=== PATIENT | female | born 1975 | race Caucasian/White ===

== ENCOUNTER 2017-11-18 21:21 | Emergency (ER) | payer SELFPAY ==
[2017-11-18] VITALS (11 sets, daily range): BP systolic 153–210; BP diastolic 92–118; PULSE 105–152; RESP 15–32; TEMP 36.6; O2SAT 91–100; BMI 34.5
[2017-11-18] MEDS: HYDROMORPHONE 1 MG INJ IV (21:48)
--- NOTE | 2017-11-18 22:03 | PC.NURSE ---
Pt arrives with visible deformity to the right ankle. Foot is turned out at a 90 degree ankle. She was at [employer] [facility] and fell onto the right ankle. The skate remains on at this time. Unable to assess distal pulses or cap refill at this time. Provider aware. Pt experiencing intermittent muscle spasms from the knee to the foot.
[2017-11-18] MEDS: KETAMINE 500 MG/10 ML INJ 200 MG IV (22:09)
--- NOTE | 2017-11-18 22:31 | DI.RAD.S_ITS ---
PROCEDURE: XR ANKLE RT MIN 3V INDICATIONS: R ankle injury post reduction xr TECHNIQUE: AP, lateral, and mortise views of the ankle were acquired. COMPARISON: None. FINDINGS: Bones: There is an oblique distal fibular diaphysis fracture with mild posterolateral displacement of the distal fracture fragment. There is a transverse fracture through the anterior aspect of the medial malleolus. There is widening of the ankle mortise suggesting ankle joint instability. Overlying cast material obscures fine anatomic detail. There is overlying soft tissue swelling at the fracture sites as well as an ankle joint effusion. IMPRESSION: Acute right distal fibular fracture and medial malleolus fracture, resulting in ankle joint instability. Dictated by: Iván Pierson M.D. on 11/19/2017 at 0:02 Approved by: Iván Pierson M.D. on 11/19/2017 at 0:05
--- NOTE | 2017-11-18 22:48 | ED.LOWEXIN ---
HPI - Extremity Injury (Lower) General Chief Complaint: Extremity Injury, Lower Stated Complaint: RT Ankle Fracture Time Seen by Provider: 11/18/17 21:33 Source: patient Mode of arrival: EMS Limitations: no limitations History of Present Illness HPI Narrative: 42-year-old female here for evaluation of right ankle injury. Patient was roller skating when she fell twisted her right ankle. Patient was unable to stand up afterwards. Had an obvious deformity of her right ankle with external rotation of her foot. She arrived in a sandbag cast by EMS. She did receive fentanyl EN route. No prior injury to this ankle. Related Data Previous Rx's Medication Instructions Recorded hydrocodone-acetaminophen [[place]] 1 tab PO Q4H PRN #20 tab 11/19/17 ondansetron [Zofran ODT] 4 mg PO BID-TID PRN #14 tab 11/19/17 Allergies Allergy/AdvReac Type Severity Reaction Status Date / Time No Known Drug Allergies Allergy Verified 11/18/17 21:50 Review of Systems Constitutional Denies frequent falls and Denies headache(s) ENT Ears, Nose, Mouth, and Throat: Denies vertigo, Denies dizziness and Denies headache(s) Cardiovascular Denies chest pain and Denies dyspnea Respiratory Denies dyspnea Gastrointestinal Gastrointestinal: Denies diarrhea, Denies nausea and Denies vomiting Musculoskeletal Comments: Right ankle pain and deformity Integumentary/Breasts Denies rash and Denies skin pain Neurologic Reports burning sensations ( right ankle), Denies confusion, Denies vertigo, Denies dizziness, Denies frequent falls and Denies headache(s) Psychiatric Denies confusion Hematologic/Lymphatic Denies easy bleeding and Denies easy bruising Exam Initial Vital Signs Initial Vital Signs: Vital Signs Temperature 97.9 F 11/18/17 21:22 Pulse Rate 105 H 11/18/17 21:22 Respiratory Rate 16 11/18/17 21:22 Blood Pressure 153/98 H 11/18/17 21:22 Pulse Oximetry 100 11/18/17 21:22 Const General: well developed, well groomed and in distress Orientation: alert, awake and oriented x3 HENMT Head: normal to inspection, normocephalic and atraumatic Resp Effort & Inspection: normal respiratory effort Auscultation: clear to auscultation bilaterally Cardio Rate: regular rate Rhythm: regular rhythm Pulses: dorsalis pedis present on the right GI Palpation: soft, No firm and No guarding Skin Other: patient with a 1/2 cm skin abrasion over the medial portion of the ankle just anterior to the medial malleolus. does appear to be superficial. Neuro Other: Sensation intact to light touch right lower extremity Extrem Other: patient with a obvious deformity to right ankle and lateral rotation of her right ankle. Psych Appearance: grossly normal and well kempt Procedures Orthopedic Joint Reduction Joint #1: Time Out Performed: Yes Side: right Joint Reduction Location: ankle Analgesia: procedural sedation Technique used: direct manipulation Post-reduction neuro exam: intact Post-reduction vascular: intact Post Reduction X-Ray Obtained: Yes Post Reduction X-Ray Results: reduced Splint Applied: Yes Patient Tolerated Procedure: Well and No complications Orthopedic Splinting/Casting Injury #1: Side: right Lower Extremity Injury Location: ankle Lower Extremity Immobilizer: posterior splint and stirrup splint Other Orthopedic Equipment: crutches Procedural Sedation Indication: fracture/dislocation reduction ASA Class: II Mallampati Airway Classification: Class I Preparation: hospital monitor applied, pulse oximeter, capnometry used, supplemental O2 applied and suction/airway equipment at bedside Ketamine: IV Ketamine dose (mg): 200 ED Sedation Level: Moderate (Concious) Patient Tolerated Procedure: Well and No complications Complications: none Course Orders Ordered: ED Orders 11/18/17 22:31 XR ankle RT min 3V Stat Discontinued Medications Hydrocodone Bitart/Acetaminophen (Vicodin Prepack) 1 bottle MISC SEEINSTR ONE Stop: 11/19/17 00:35 Last Admin: 11/19/17 00:49 Dose: 1 bottle Hydrocodone Bitart/Acetaminophen ([place] 5/325) 1 tab PO NOW ONE Stop: 11/19/17 00:35 Last Admin: 11/19/17 00:49 Dose: 1 tab Hydromorphone HCl (Dilaudid) 1 mg IV NOW ONE Stop: 11/18/17 21:35 Last Admin: 11/18/17 21:48 Dose: 1 mg Ketamine HCl (Ketalar) 200 mg IV NOW ONE Stop: 11/18/17 23:17 Last Admin: 11/18/17 22:09 Dose: 200 mg Ondansetron HCl (Zofran) 4 mg IV NOW ONE Stop: 11/18/17 23:47 Last Admin: 11/19/17 00:00 Dose: 4 mg Ondansetron HCl (Zofran Odt Prepack) 1 bottle MISC SEEINSTR ONE Stop: 11/19/17 00:35 Last Admin: 11/19/17 00:49 Dose: 1 bottle Vital Signs - 8 hr 11/18/17 21:22 11/18/17 22:04 11/18/17 22:09 Temperature 97.9 F Pulse Rate 105 H 106 H 109 H Pulse Rate [Bilateral Dorsalis Pedis] Respiratory Rate 16 23 20 Blood Pressure 153/98 H Blood Pressure [Right Arm] 166/99 H 189/115 H Pulse Oximetry 100 100 98 11/18/17 22:15 11/18/17 22:20 11/18/17 22:25 Temperature Pulse Rate 148 H 144 H 152 H Pulse Rate [Bilateral Dorsalis Pedis] Respiratory Rate 22 30 H 32 H Blood Pressure Blood Pressure [Right Arm] 210/118 H 190/95 H 196/102 H Pulse Oximetry 91 95 94 11/18/17 22:30 11/18/17 22:35 11/18/17 22:40 Temperature Pulse Rate 132 H 111 H 117 H Pulse Rate [Bilateral Dorsalis Pedis] Respiratory Rate 22 15 23 Blood Pressure Blood Pressure [Right Arm] 186/92 H 175/104 H 174/103 H Pulse Oximetry 94 98 98 11/18/17 22:45 11/18/17 23:00 11/19/17 01:16 Temperature 98.2 F Pulse Rate 111 H 86 Pulse Rate [Bilateral Dorsalis Pedis] 112 H Respiratory Rate 23 21 Blood Pressure 136/86 H Blood Pressure [Right Arm] 169/105 H Pulse Oximetry 97 99 MDM - Extremity Injury (Lower) Imaging Data ankle x-ray: Radiologist's impression: PROCEDURE: XR ANKLE RT MIN 3V INDICATIONS: R ankle injury post reduction xr TECHNIQUE: AP, lateral, and mortise views of the ankle were acquired. COMPARISON: None. FINDINGS: Bones: There is an oblique distal fibular diaphysis fracture with mild posterolateral displacement of the distal fracture fragment. There is a transverse fracture through the anterior aspect of the medial malleolus. There is widening of the ankle mortise suggesting ankle joint instability. Overlying cast material obscures fine anatomic detail. There is overlying soft tissue swelling at the fracture sites as well as an ankle joint effusion. IMPRESSION: Acute right distal fibular fracture and medial malleolus fracture, resulting in ankle joint instability. Dictated by: Iván Pierson M.D. on 11/19/2017 at 0:02 Approved by: Iván Pierson M.D. on 11/19/2017 at 0:05 [facility] Narrative Medical decision making narrative: Patient with obvious deformity to her right ankle. The skin abrasion over the medial aspect of the ankle does appear to be a superficial wound. Patient was sedated as above for reduction of the fracture dislocation. Patient was placed in a posterior splint with stirrup. Discussed the case with Dr. Hoskins who is on-call for orthopedic states the patient can be followed up as a outpatient. Patient was neurovascularly intact after the procedure. She was given care instructions with regard to the splint. Also instructed to be nonweightbearing on this leg. Was sent home with pain medication. Patient tolerated the sedation well. is at bedside. They both expressed understanding and agreement with plan Discharge Plan Departure Patient Disposition: Home, Self-Care Clinical Impression: Ankle fracture Discharge Date/Time: 11/19/17 01:16 Interventions: ED Discharge Assessment Last Done: 11/19/17 01:16 Instructions: How to Use Crutches, DI for Ankle Fracture, How to Take Care of Your Splint Activity Restrictions/Additional Instructions: Treat the splint like a cast and keep it on and keep it dry. Keep your ankle elevated as much as possible. Take the medications as directed. Call your primary care doctor tomorrow for a follow-up and also contact the [facility] group at [phone] tomorrow to schedule a follow-up. Do not place any weight on your right ankle. Return to the emergency department for any new or worsening symptoms Prescriptions: New hydrocodone-acetaminophen [[place]] 5-325 mg tablet 1 tab PO Q4H PRN (Reason: pain) Qty: 20 RF: 0 ondansetron [Zofran ODT] 4 mg tablet,disintegrating 4 mg PO BID-TID PRN (Reason: nausea and vomiting) Qty: 14 RF: 0
--- NOTE | 2017-11-18 23:02 | PC.NURSE ---
Splint in place. Pt states pain is much better. She is able to feel my touch on the foot and on the toes accessible from splint. Elevated extremity.
[2017-11-19] MEDS: ONDANSETRON 4 MG/2 ML INJ IV
[2017-11-19] MEDS: HYDROCODONE/ACET 5/325 PREPACK 1 BOTTLE MISC (00:49)
[2017-11-19] MEDS: ONDANSETRON 4 MG ODT PREPACK 1 BOTTLE MISC (00:49)
[2017-11-19] MEDS: HYDROCODONE/ACET 5/325 TABLET 1 TAB PO (00:49)
[2017-11-19 01:16] VITALS: BP 136/86; PULSE 86; RESP 21; TEMP 36.8; O2SAT 99
== END 2017-11-19 01:16 | disposition home or self-care (01) ==
PROVIDERS: Emergency Provider Emergency Medicine
DX: S82.891A Other fracture of right lower leg, initial encounter for closed fracture (principal); V00.128A Other non-in-line roller-skating accident, initial encounter
CPT/HCPCS: 27762; 73610; 96374; 96375; 99152; 99283; 99285; J1170; J2405

== ENCOUNTER 2017-11-24 14:04 | Day surgery (SDC) | payer SELFPAY ==
[2017-11-21 12:30] VITALS: BMI 33.2
[2017-11-24] VITALS (11 sets, daily range): BP systolic 148–188; BP diastolic 85–107; PULSE 86–176; RESP 10–18; TEMP 36.7–37.1; O2SAT 93–99; BMI 33.2
--- NOTE | 2017-11-24 | DI.RAD.S_ITS ---
PROCEDURE: XR ANKLE RT 2V INDICATIONS: RIGHT ANKLE ORIF TECHNIQUE: 2 views of the ankle were acquired. COMPARISON: [facility], , XR ANKLE RT MIN 3V, 11/18/2017, 21:59. FINDINGS: 2 spot fluoroscopic intraoperative images demonstrating plate and screw fixation of lateral malleolus and screw fixation of the medial malleolus. There is expected intraoperative alignment. Dictated by: Darin Davalos M.D. on 11/24/2017 at 17:14 Approved by: Darin Davalos M.D. on 11/24/2017 at 17:15
[2017-11-24] MEDS: LACTATED RINGERS 1,000 ML 42 ML IV ×2 (14:55→18:35)
[2017-11-24] MEDS: CEFAZOLIN 2 GM/100 ML FROZ.PIGGY IV (16:18)
--- NOTE | 2017-11-24 16:29 | PM.PREOP ---
Pre-operative Note Interval Note Pre-op Check: Yes History & Physical Reviewed by Physician and Yes Exam Performed Changes: No
[2017-11-24] MEDS: BUPIVACAINE 0.5% W/ EPI (PF) VIAL 30 ML INJ (17:18)
--- NOTE | 2017-11-24 17:46 | PM.OP.1 ---
Operative Date/Time/Diagnoses Date of procedure: 11/24/17 Time of procedure: 17:30 Pre-op diagnosis: Bimalleolar right ankle fracture Post-op diagnosis: same Procedure & Clinicians Procedure: Open reduction internal fixation of right bimalleolar ankle fracture Same procedure as scheduled: Yes Indications: The patient is a 42-year-old woman who last week injured her ankle sustaining a fracture dislocation. Dislocation was reduced in the emergency room and her ankle was splinted and she was referred for orthopedic follow-up. She returns to the operating room today for definitive fixation of the bimalleolar ankle fracture. She has agreed to surgery after discussion the risks benefits and alternatives. Risks discussed included but were not limited to: Failure to improve, stiffness, continuing pain, infection, nerve damage, deep venous thrombosis, pulmonary embolism, stroke, myocardial infarction, permanent paralysis and . Surgeon: Jl Hoskins Rn Cardiac Rehab: Yanelis Lopez Click Yes if Unassisted: No Anesthesia Type: General and Local Operative Notes Findings: Satisfactory reduction of bimalleolar ankle fracture. Closure Type: primary Specimen(s): none sent Implants & Drains: Implants used in this procedure were manufactured by the [employer] included a 6 hole 1/3 tubular side plate for the lateral side with 7 screws, 1 placed outside the plate as a leg screw. In addition there was 1 partially threaded cancellous screw medially. Applied: cast(s) (Splint) Estimated Blood Loss (mL): 10 Blood products transfused: none Tourniquet time (min): 44 Procedure in detail: The patient was seen in the preoperative area where she identified her right leg as the operative site and this was marked with my initials. She received preoperative antibiotics and was taken the operating room and placed on the operating room table in the supine position where she underwent a general anesthetic. There were a tourniquet was placed around her proximal right leg, the right leg was prepared from the toes to the tourniquet with ChloraPrep in the usual fashion and draped through sterile drapes. The leg was elevated and exsanguinated with an Esmarch bandage and the tourniquet inflated to 250 mm of mercury. An approximately 6 cm incision was made centered over the fracture site laterally this was carried to the fascia with Metzenbaum scissor dissection. The fascia was elevated from the lateral aspect of the fibula. The oblique fracture was cleared of intervening soft tissue and hematoma using a curette. The fracture was reduced using a reduction clamp. A single lag screw was placed across the fracture to provide fixation. A 2nd lag screw could not be placed due to the short oblique nature of the fracture so I elected to place a 6 hole 1/3 tubular side plate as a neutralization plate. This was bent to the appropriate shape and applied to the lateral fibula. All 6 holes were filled with the distal most hole being filled by a partially-threaded cancellous screw due to the fact it was below the ankle joint line. The lateral wound was then irrigated in the subcutaneous layer closed with 3 0 Vicryl. We then turned our attention to the medial side. The medial side was approached on approximately 3 cm incision overlying the medial malleolus. The patient had fractured only the anterior colliculus of the medial malleolus. This was reduced after cleaning the fracture site of hematoma and periosteum using a pointed reduction clamp. A single partially-threaded cancellous screw was placed as the fragment was not large enough to accommodate 2 screws. This did appear to be close to the joint on fluoroscopy but with careful inspection was seen to be outside the subchondral bone. The medial wound was also irrigated and closed with 3 0 Vicryl in the subcutaneous layer. Both wounds were closed with angy. The wounds were infiltrated locally with 0.5% Marcaine with epinephrine for postoperative pain control. Dressings with Xeroform, 4x4s, cast padding and a stirrup type splint were applied and the patient was then transferred to the recovery room in good condition having tolerated the procedure well. The tourniquet was deflated during dressing placement. Complications: none Condition: stable Disposition: PACU Plan for aftercare: The patient will remain in the current splint for 2 weeks nonweightbearing. She will then follow up in my office in 2 weeks to be changed into a short leg cast. She will remain nonweightbearing for total of 4 weeks postoperatively at which time she will be switched into a Western walker orthosis and allowed to weightbear as tolerated in the orthosis for an additional 4 weeks.
[2017-11-24] MEDS: HYDROMORPHONE 2 MG INJ 0.5 MG IV (17:56)
[2017-11-24] MEDS: fentaNYL 100 MCG/2 ML INJ 50 MCG IV ×2 (17:56→18:11)
--- NOTE | 2017-11-24 18:03 | SUR.PHASEI ---
1756 rx given for pain, moaning, grimace8/10 in right ankle. Drowsy, responds readily, oriented
[2017-11-24] MEDS: hydrOXYzine pamoate 25 MG CAPSULE PO (18:18)
[2017-11-24] MEDS: OXYCODONE IR 5 MG TABLET PO (18:19)
[2017-11-24] MEDS: diphenhydrAMINE 50 MG/ML VIAL IV (18:29)
--- NOTE | 2017-11-24 18:45 | SUR.PHASEI ---
182 Dr. Toro called and notified of patient complaint of itching all over- no redness or rash noted on face, chest, back, or extremities. Verbal order given, Rx given. 184 Resting comfortable, mostly dozing, arouses easily. Spouse at bedside, reviewed [facility], home care with him. states that itching is going away.
--- NOTE | 2017-11-24 19:13 | SUR.PHASEII ---
1910 deny any further questions.Pain improved, no drainage, nausea. 180 late entry unable to get pain med to scan properly, documented on paper (order was in the computer) Dilaudid 0.5 mg iv
== END 2017-11-24 19:10 | disposition home or self-care (01) ==
PROVIDERS: Visit Provider Orthopaedic Surgery
PROC: 0SSF04Z Reposition Right Ankle Joint with Internal Fixation Device, Open Approach (ICD-10-PCS; CPT 27814; principal; 2017-11-24 15:45)
DX: S82.841A Displaced bimalleolar fracture of right lower leg, initial encounter for closed fracture (principal); Y93.51 Activity, roller skating (inline) and skateboarding; I10 Essential (primary) hypertension
CPT/HCPCS: 27814; 73600; 76000; J0690; J1100; J1170; J1200; J2405; J2704; J3010